=== PATIENT | female | born 1975 | race American Indian/Alaskan Native ===

== ENCOUNTER 2016-12-18 13:26 | Emergency (ER) | payer SELFPAY ==
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
[2016-12-18 20:01] VITALS: BP 138/102
== END 2016-12-18 20:16 | disposition home or self-care (01) ==
LOC: ED 13:26
DX: S01.512A Laceration without foreign body of oral cavity, initial encounter (principal); R03.0 Elevated blood-pressure reading, without diagnosis of hypertension; W25.XXXA Contact with sharp glass, initial encounter; Y93.9 Activity, unspecified; Y99.9 Unspecified external cause status; Y92.89 Other specified places as the place of occurrence of the external cause
CPT/HCPCS: 74022; 99283

== ENCOUNTER 2017-06-02 21:29 | Emergency (ER) | payer SELFPAY ==
[2017-06-02 23:11] LABS: Basophils % (Auto) 0.5 % (0.0-1.8); Eosinophils % (Auto) 2.6 % (0.0-4.3); Hematocrit 38.4 % (30.3-42.9); Hemoglobin 12.7 gm/dl (10.1-14.3); Mean Corpuscular HGB Conc 33 % (30-34); Mean Corpuscular Hemoglobin 29 pg (28-32); Mean Corpuscular Volume 88 fl (79-97); Platelet Count 196 K/mm3 (140-440); Red Blood Count 4.39 M/mm3 (3.65-5.03)
[2017-06-02 23:22] LABS: Alanine Aminotransferase 12 units/L (7-56); Albumin 3.6 g/dL (3.9-5); Albumin/Globulin Ratio 1.2 %; Alkaline Phosphatase 57 units/L (35-129); Anion Gap 15 mmol/L; BUN/Creatinine Ratio 23; Blood Urea Nitrogen 16 mg/dL (7-17); Calcium 8.8 mg/dL (8.4-10.2); Carbon Dioxide 26 mmol/L (22-30); Chloride 105.7 mmol/L (98-107); Glucose 105 mg/dL (65-100); Potassium 4.2 mmol/L (3.6-5.0); Sodium 142 mmol/L (137-145); Total Protein 6.5 g/dL (6.3-8.2)
--- NOTE | 2017-06-03 02:23 | Emergency Department Report ---
ED Rash HPI - HPI Chief Complaint: Pain General Stated Complaint: KNOT BEHIND RT EAR Rash Symptoms: Yes Itching, No Facial Swelling, No Breathing Difficulties, No Choking Sensation, No Wheezing/Dyspnea, No Peeling, No Blistering, No Fever ED Review of Systems ROS: Stated complaint: KNOT BEHIND RT EAR Other details as noted in HPI ED Past Medical Hx - Past Medical History Previous Medical History?: No Hx Hypertension: No Hx Kidney Stones: Yes Additional medical history: hernia repair - Surgical History Past Surgical History?: Yes Additional Surgical History: HERNIA REPAIR, - Social History Smoking Status: Never Smoker Substance Use Type: None - Medications Home Medications: Home Medications Medication Instructions Recorded Confirmed Last Taken Type Amoxicillin 500 mg PO BID #14 capsule 12/18/16 Unknown Rx Ibuprofen [Motrin] 600 mg PO Q8H PRN #15 tablet 12/18/16 Unknown Rx Lidocaine Viscous 2% 15 ml MM QID PRN #120 udc 12/18/16 Unknown Rx Amoxicillin/K Clav Tab [Augmentin 1 tab PO Q12HR #14 tab 06/03/17 Unknown Rx 875 mg] Hydroxyzine HCl 25 mg PO Q8H PRN #20 tablet 06/03/17 Unknown Rx Ibuprofen [Motrin] 800 mg PO Q8HR PRN #30 tablet 06/03/17 Unknown Rx Ketoconazole (Nf) [Ketoconazole 1 applicatio TP QDAY #1 shampoo 06/03/17 Unknown Rx Shampoo (Nf)] Salicylic Acid [Selsun Blue] 1 applicatio TP QDAY #1 shampoo 06/03/17 Unknown Rx Rash Exam - Exam General: Vital signs noted. No distress. Alert and acting appropriately. ED Course Vital Signs 06/02/17 22:05 Temperature 98.4 F Pulse Rate 95 H Respiratory 16 Rate Blood Pressure 170/99 O2 Sat by Pulse 98 Oximetry ED Medical Decision Making - Lab Data Result diagrams: 06/02/17 22:35 06/02/17 22:35 Critical care attestation.: If time is entered above; I have spent that time in minutes in the direct care of this critically ill patient, excluding procedure time. ED Disposition Clinical Impression: Tinea capitis Contact dermatitis Qualifiers: Contact dermatitis type: irritant Contact dermatitis trigger: other trigger Qualified Code(s): L24.89 - Irritant contact dermatitis due to other agents; L24.8 - Irritant contact dermatitis due to other agents Disposition: DC-01 TO HOME OR SELFCARE Is pt being admited?: No Does the pt Need Aspirin: No Condition: Stable Instructions: Tinea Capitis (ED), Contact Dermatitis (ED) Prescriptions: Amoxicillin/K Clav Tab [Augmentin 875 mg] 1 tab PO Q12HR #14 tab Hydroxyzine HCl 25 mg PO Q8H PRN #20 tablet PRN Reason: Itching Ibuprofen [Motrin] 800 mg PO Q8HR PRN #30 tablet PRN Reason: Pain Ketoconazole (Nf) [Ketoconazole Shampoo (Nf)] 1 applicatio TP QDAY #1 shampoo Salicylic Acid [Selsun Blue] 1 applicatio TP QDAY #1 shampoo Referrals: [facility] [Provider Group] - 3-[address] [facility] [Outside] - 3-5 Days [facility] [Outside] - 3-5 Days Time of Disposition: 02:25
[2017-06-03] MEDS ORDERED: DECADRON IM ONE (02:29)
[2017-06-03] MEDS ORDERED: PEPCID PO ONE (02:29)
[2017-06-03 05:25] VITALS: BP 168/98
== END 2017-06-03 03:05 | disposition home or self-care (01) ==
LOC: ED 21:29
DX: L25.9 Unspecified contact dermatitis, unspecified cause (principal); B35.0 Tinea barbae and tinea capitis
CPT/HCPCS: 36415; 80053; 85025; 96372; 99283; J1100

== ENCOUNTER 2018-04-13 21:13 | Emergency (ER) | payer OTHER ==
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
[2018-04-14 01:35] VITALS: BP 163/83
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
== END 2018-04-14 04:27 | disposition home or self-care (01) ==
LOC: ED 21:13
DX: S96.912A Strain of unspecified muscle and tendon at ankle and foot level, left foot, initial encounter (principal); S00.83XA Contusion of other part of head, initial encounter; R03.0 Elevated blood-pressure reading, without diagnosis of hypertension; E66.01 Morbid (severe) obesity due to excess calories; Z68.43 Body mass index [BMI] 50.0-59.9, adult; V89.2XXA Person injured in unspecified motor-vehicle accident, traffic, initial encounter; Y93.89 Activity, other specified; Y92.89 Other specified places as the place of occurrence of the external cause; Y99.8 Other external cause status
CPT/HCPCS: 70450

== ENCOUNTER 2018-12-11 16:16 | Emergency (ER) | payer OTHER ==
[2018-12-11 16:45] VITALS: BP 153/105
--- NOTE | 2018-12-11 16:45 | Emergency Department Report ---
Chief Complaint: Dizziness Stated Complaint: LIGHT HEADED Time Seen by Provider: 12/11/18 16:42 - HPI History of Present Illness: pt presents emesis and lightheadedness that began yesterday (+) diarrhea, nausea (+) vaginal itching/irritation no discharge denies dysuria LNMP november 23 no PMHx no daily meds non smoker non drinker no drug use MSE screening note: Focused history and physical exam performed. Due to findings the following was ordered: labs, UA, urine preg, wet prep ED Disposition for MSE Condition: Stable
[2018-12-11 17:20] LABS: Basophils # (Auto) 0.1 K/mm3 (0.0-0.1); Basophils % (Auto) 1.3 % (0.0-1.8); Eosinophils # (Auto) 0.1 K/mm3 (0.0-0.4); Eosinophils % (Auto) 1.3 % (0.0-4.3); Hematocrit 38.4 % (30.3-42.9); Hemoglobin 12.6 gm/dl (10.1-14.3); Lymphocytes # (Auto) 2.2 K/mm3 (1.2-5.4); Lymphocytes % (Auto) 31.4 % (13.4-35.0); Mean Corpuscular HGB Conc 33 % (30-34); Mean Corpuscular Volume 88 fl (79-97); Monocytes # (Auto) 0.6 K/mm3 (0.0-0.8); Monocytes % (Auto) 8.4 % (0.0-7.3); Platelet Count 224 K/mm3 (140-440); Red Blood Count 4.37 M/mm3 (3.65-5.03)
[2018-12-11 17:33] LABS: BUN/Creatinine Ratio 17; Blood Urea Nitrogen 12 mg/dL (7-17); Calcium 8.7 mg/dL (8.4-10.2); Hemolysis Index 8
[2018-12-11 17:33] LABS: HCG Qualitative,Urine Negative (Negative)
[2018-12-11 17:37] LABS: Bacteria,Urine 2+ /HPF (Negative); Bilirubin,Urine NEG (Negative); Blood,Urine NEG (Negative); Color,Urine Yellow (Yellow); Mucus,Urine 2+ /HPF; Protein,Urine <15 mg/dL mg/dL (Negative); Urobilinogen,Urine < 2.0 mg/dL (<2.0)
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
--- NOTE | 2018-12-11 22:33 | XRay Report ---
PROCEDURE: LEFT CLAVICLE TECHNIQUE: LEFT clavicle radiographs. CPT 81648 HISTORY: Trauma COMPARISONS: None . FINDINGS: Fracture (s) and/or Dislocation(s): None . Soft tissues: Normal . Bone mineralization: Normal . Foreign bodies: None . IMPRESSION: Normal Examination . This document is electronically signed by Simone Reyes MD., December 11 2018 10:31:12 PM ET
[2018-12-11] MEDS ORDERED: XYLOCAINE 1% MPF 5 mL INFILTRATI ONE (23:03)
[2018-12-11] MEDS ORDERED: ZITHROMAX PO ONE (23:03)
[2018-12-11] MEDS ORDERED: ROCEPHIN IM ONE (23:03)
== END 2018-12-12 00:05 | disposition home or self-care (01) ==
LOC: ED 16:16
DX: M25.512 Pain in left shoulder (principal); N89.8 Other specified noninflammatory disorders of vagina; Z20.2 Contact with and (suspected) exposure to infections with a predominantly sexual mode of transmission; Z87.442 Personal history of urinary calculi
CPT/HCPCS: 36415; 73000; 80048; 81001; 81025; 85025; 87210; 87591; 96372; 99284; J0696

== ENCOUNTER 2019-08-28 14:50 | Emergency (ER) | payer SELFPAY ==
--- NOTE | 2019-08-28 16:54 | Emergency Department Report ---
ED Back Pain/Injury HPI - General Chief Complaint: Back Pain/Injury Stated Complaint: LOWER BACK PAIN/(L) SIDE PAIN Time Seen by Provider: 08/28/19 16:49 Source: patient Limitations: No Limitations - History of Present Illness Initial Comments: This is a 44-year-old female nontoxic, well nourished in appearance, no acute signs of distress presents to the ED with c/o of acute on chronic lower back pain. Patient stated that the past 2 days she was moving and developed this pain. Patient denies any trauma. Denies any bladder or bowel instability. Patient denies any urinary symptoms. Denies any fever, chills, nausea, vomiting, headache, stiff neck, chest pain or shortness of breath. Patient denies any numbness or tingling. Denies any allergies. MD Complaint: back pain -: days(s) Similar Symptoms Previously: Yes Radiation: left leg Severity: mild Severity scale (0 -10): 8 Quality: aching Consistency: intermittent Improves With: immobilization, sitting upright Worsens With: movement, walking Context: while lifting, turning/twisting Associated Symptoms: denies other symptoms. denies: confusion, weakness, chest pain, numbness, difficulty walking, cough, difficulty urinating, diaphoresis, incontinence, fever/chills, constipation, headaches, abdominal pain, loss of appetite, malaise, nausea/vomiting, rash, seizure, shortness of breath, syncope - Related Data Previous Rx's Medication Instructions Recorded Last Taken Type Amoxicillin 500 mg PO BID #14 capsule 12/18/16 Unknown Rx Ibuprofen [Motrin] 600 mg PO Q8H PRN #15 tablet 12/18/16 Unknown Rx Lidocaine Viscous 2% 15 ml MM QID PRN #120 udc 12/18/16 Unknown Rx Amoxicillin/K Clav Tab [Augmentin 1 tab PO Q12HR #14 tab 06/03/17 Unknown Rx 875 mg] Ibuprofen [Motrin] 800 mg PO Q8HR PRN #30 tablet 06/03/17 Unknown Rx Ketoconazole (Nf) [Ketoconazole 1 applicatio TP QDAY #1 shampoo 06/03/17 Unknown Rx Shampoo (Nf)] Salicylic Acid [Selsun Blue] 1 applicatio TP QDAY #1 shampoo 06/03/17 Unknown Rx hydrOXYzine HCL [Hydroxyzine HCl] 25 mg PO Q8H PRN #20 tablet 06/03/17 Unknown Rx Baclofen [Lioresal] 10 mg PO TID #15 tab 04/14/18 Unknown Rx traMADoL [Ultram 50 MG tab] 50 mg PO Q6HR PRN #12 tablet 12/11/18 Unknown Rx Cyclobenzaprine [Flexeril] 10 mg PO QHS PRN #10 tablet 08/28/19 Unknown Rx Naproxen 500 mg PO Q12H PRN #20 tablet 08/28/19 Unknown Rx Allergies Allergy/AdvReac Type Severity Reaction Status Date / Time No Known Allergies Allergy Verified 06/02/17 22:05 ED Review of Systems ROS: Stated complaint: LOWER BACK PAIN/(L) SIDE PAIN Other details as noted in HPI Constitutional: denies: chills, fever Eyes: denies: eye pain, eye discharge, vision change ENT: denies: ear pain, throat pain Respiratory: denies: cough, shortness of breath, wheezing Cardiovascular: denies: chest pain, palpitations Endocrine: no symptoms reported Gastrointestinal: denies: abdominal pain, nausea, diarrhea Genitourinary: denies: urgency, dysuria, discharge Musculoskeletal: back pain. denies: joint swelling, arthralgia Skin: denies: rash, lesions Neurological: denies: headache, weakness, paresthesias Psychiatric: denies: anxiety, depression Hematological/Lymphatic: denies: easy bleeding, easy bruising ED Past Medical Hx - Past Medical History Previous Medical History?: Yes Hx Hypertension: No Hx Kidney Stones: Yes Additional medical history: hernia repair - Surgical History Past Surgical History?: Yes Additional Surgical History: HERNIA REPAIR, - Social History Smoking Status: Never Smoker Substance Use Type: None - Medications Home Medications: Home Medications Medication Instructions Recorded Confirmed Last Taken Type Amoxicillin 500 mg PO BID #14 capsule 12/18/16 Unknown Rx Ibuprofen [Motrin] 600 mg PO Q8H PRN #15 tablet 12/18/16 Unknown Rx Lidocaine Viscous 2% 15 ml MM QID PRN #120 udc 12/18/16 Unknown Rx Amoxicillin/K Clav Tab [Augmentin 1 tab PO Q12HR #14 tab 06/03/17 Unknown Rx 875 mg] Ibuprofen [Motrin] 800 mg PO Q8HR PRN #30 tablet 06/03/17 Unknown Rx Ketoconazole (Nf) [Ketoconazole 1 applicatio TP QDAY #1 shampoo 06/03/17 Unknown Rx Shampoo (Nf)] Salicylic Acid [Selsun Blue] 1 applicatio TP QDAY #1 shampoo 06/03/17 Unknown Rx hydrOXYzine HCL [Hydroxyzine HCl] 25 mg PO Q8H PRN #20 tablet 06/03/17 Unknown Rx Baclofen [Lioresal] 10 mg PO TID #15 tab 04/14/18 Unknown Rx traMADoL [Ultram 50 MG tab] 50 mg PO Q6HR PRN #12 tablet 12/11/18 Unknown Rx Cyclobenzaprine [Flexeril] 10 mg PO QHS PRN #10 tablet 08/28/19 Unknown Rx Naproxen 500 mg PO Q12H PRN #20 tablet 08/28/19 Unknown Rx ED Physical Exam - General Limitations: No Limitations General appearance: alert, in no apparent distress - Head Head exam: Present: atraumatic, normocephalic - Neck Neck exam: Present: normal inspection, full ROM. Absent: tenderness, meningismus, lymphadenopathy - Extremities Exam Extremities exam: Present: normal inspection, full ROM, normal capillary refill. Absent: tenderness - Back Exam Back exam: Present: normal inspection, full ROM, paraspinal tenderness (left lumbar paraspinal). Absent: tenderness, CVA tenderness (R), CVA tenderness (L), muscle spasm, vertebral tenderness, rash noted - Expanded Back Exam Expanded Back exam: Absent: saddle anesthesia Back exam: Negative Straight Leg Raising: Left, Right - Neurological Exam Neurological exam: Present: alert, oriented X3, normal gait - Psychiatric Psychiatric exam: Present: normal affect, normal mood - Skin Skin exam: Present: warm, dry, intact, normal color. Absent: rash ED Course - Reevaluation(s) Reevaluation #1: 08/28/19 16:52 Patient is speaking in full sentences with no signs of distress noted. ED Medical Decision Making - Medical Decision Making This is a 44-year-old female that presents with low back strain. Patient is stable was examined by me. There is no spinal tenderness. There is no cauda equina syndrome during examination. No bladder or bowel instability. Patient is discharged with muscle relaxant and NSAID. Patient was instructed not to operate any machinery while taking muscle relaxant as they cause her drowsiness. Patient was referred to Follow-up with a primary care doctor in 3-5 days or if symptoms worsen and continue return to emergency room as soon as possible. At time of discharge, the patient does not seem toxic or ill in appearance. No acute signs of distress noted. Patient agrees to discharge treatment plan of care. No further questions noted by the patient. Critical care attestation.: If time is entered above; I have spent that time in minutes in the direct care of this critically ill patient, excluding procedure time. ED Disposition Clinical Impression: Low back strain Qualifiers: Encounter type: initial encounter Qualified Code(s): S39.012A - Strain of muscle, fascia and tendon of lower back, initial encounter Disposition: TO HOME OR SELFCARE Is pt being admited?: No Does the pt Need Aspirin: No Condition: Stable Instructions: Cyclobenzaprine (By mouth), Low Back Strain (ED) Additional Instructions: Follow-up with a primary care doctor in 3-5 days or if symptoms worsen and continue return to emergency room as soon as possible. Prescriptions: Cyclobenzaprine [Flexeril] 10 mg PO QHS PRN #10 tablet PRN Reason: Muscle Spasm Naproxen 500 mg PO Q12H PRN #20 tablet PRN Reason: Pain , Severe (7-10) Referrals: PRIMARY CAREMD [Referring] - 3-5 Days NELSON LIU MD [Staff Physician] - 3-5 Days [facility] [Outside] - 3-5 Days Forms: Work/School Release Form(ED)
[2019-08-28 16:55] VITALS: BP 177/101
== END 2019-08-28 16:55 | disposition home or self-care (01) ==
LOC: ED 14:50
DX: S39.012A Strain of muscle, fascia and tendon of lower back, initial encounter (principal); X58.XXXA Exposure to other specified factors, initial encounter; Y93.89 Activity, other specified; Y92.488 Other paved roadways as the place of occurrence of the external cause; Y99.8 Other external cause status
CPT/HCPCS: 99282